=== PATIENT | female | born 1980 | race African-American/Black ===

== ENCOUNTER 2018-07-13 13:41 | Inpatient (IN) | payer OTHER ==
[~2018-07-13] VITALS: Ht 177.8 cm; Wt 86.3 kg
[2018-07-13 14:25] LABS: Basophils # (auto) 0 uL; Basophils % (auto) 0.5 % (0.0-2.0); Eosinophils # (auto) 0.1 uL; Lymphocytes # (auto) 1.2 uL; Monocytes # (auto) 0.3 uL; Nucleated Red Blood Cells % 0.1 %
[2018-07-13 14:27] LABS: Eosinophils % (auto) 2.6 % (0.0-7.0); Hematocrit 21.7 % (36.0-46.0); Lymphocytes % (auto) 22.1 % (10.0-50.0); Mean Corpuscular Hemoglobin 22.2 pg (28.0-32.0); Mean Corpuscular Volume 71.5 fL (80.0-100.0); Monocytes % (auto) 5.6 % (0.0-12.0); Neutrophils # (auto) 3.7 uL; Neutrophils % (auto) 69.2 % (37.0-80.0); Platelet Count (auto) 258 10^3/uL (140-450); Red Blood Cells 3.04 10^6/uL (4.0-5.20); White Blood Cell 5.4 10^3/uL (4.4-10.8)
[2018-07-13 14:39] LABS: Red Cell Distribution Width 23.5 % (11.8-14.3)
[2018-07-13 14:41] LABS: Hemoglobin 6.7 g/dL (12.2-16.2)
[2018-07-13 14:43] LABS: Alanine Aminotransferase 17 U/L (13-56); Albumin 3.6 g/dL (3.4-5.0); Anion Gap 8 (5-15); Blood Urea Nitrogen 5 mg/dL (7-18); Carbon Dioxide 22 mmol/L (21-32); Chloride 108 mmol/L (98-107); Glucose 91 mg/dL (74-106); Potassium 3.7 mmol/L (3.5-5.1); Sodium 138 mmol/L (136-145)
[2018-07-13 14:47] LABS: Alkaline Phosphatase 44 U/L (45-117); Aspartate Aminotransferase 12 U/L (15-37); BUN/Creatinine Ratio 8.3; Bilirubin, Total 0.3 mg/dL (0.2-1.0); GFR African American 145 mL/min; GFR Non-African American 120 mL/min; Total Protein 7.8 g/dL (6.4-8.2)
[2018-07-13] MEDS ORDERED: ACETAMINOPHEN 325 MG TAB PO PRN (16:00)
[2018-07-13] MEDS ORDERED: MORPHINE SULFATE 4 MG/ML SYR/VIAL IV PRN ×2 (16:00)
[2018-07-13] MEDS ORDERED: ONDANSETRON HCL 4 MG/2 ML VIAL IV PRN (16:00)
[2018-07-13] MEDS ORDERED: PANTOPRAZOLE 40 MG/10 ML VIAL IV ONE (16:00)
[2018-07-13] MEDS ORDERED: TEMAZEPAM 15 MG CAP PO PRN (16:00)
[2018-07-13] MEDS ORDERED: HYDROcodone-ACET 5/325MG TAB PO PRN (16:00)
[2018-07-13] MEDS ORDERED: DOCUSATE SOD 100 MG CAP PO PRN (16:00)
[2018-07-13] MEDS ORDERED: NITROGLYCERIN 0.4 MG SL TAB SL PRN (16:00)
[2018-07-13] MEDS: SODIUM CHLORIDE 0.9% 1,000 ML IV SCH (16:20)
[2018-07-13 17:29] LABS: INR 0.95 (0.9-1.15); Prothrombin Time 10.2 sec (9.27-12.13)
[2018-07-13 17:46] VITALS: BP 126/66
[2018-07-13 18:01] VITALS: BP 112/66
[2018-07-13 20:01] VITALS: BP 112/70
[2018-07-13 20:30] VITALS: BP 107/64
[2018-07-13] MEDS: FAMOTIDINE 20 MG TAB PO SCH (22:29)
[2018-07-14 01:02] VITALS: BP 110/67
[2018-07-14] MEDS ORDERED: PED1DRO5 PO (01:45)
[2018-07-14] MEDS ORDERED: MULTCAP45 PO (01:46)
[2018-07-14 05:30] VITALS: BP_SYST 109; BP_SYST 111; BP_DIAS 64
[2018-07-14 05:48] LABS: Basophils # (auto) 0 uL; Hemoglobin 8.4 g/dL (12.2-16.2); Monocytes # (auto) 0.3 uL; Neutrophils # (auto) 3.6 uL; Nucleated Red Blood Cells % 0.1 %; White Blood Cell 5.1 10^3/uL (4.4-10.8)
[2018-07-14 05:50] LABS: Basophils % (auto) 0.6 % (0.0-2.0); Eosinophils # (auto) 0.2 uL; Eosinophils % (auto) 3.5 % (0.0-7.0); Hematocrit 26.9 % (36.0-46.0); Lymphocytes % (auto) 20.2 % (10.0-50.0); Mean Corpuscular Hemoglobin 23.9 pg (28.0-32.0); Mean Corpuscular Hgb Conc. 31.3 g/dL (32.0-36.0); Mean Corpuscular Volume 76.2 fL (80.0-100.0); Monocytes % (auto) 5.6 % (0.0-12.0); Neutrophils % (auto) 70.1 % (37.0-80.0); Platelet Count (auto) 230 10^3/uL (140-450); Red Blood Cells 3.53 10^6/uL (4.0-5.20)
[2018-07-14 05:56] LABS: Red Cell Distribution Width 23.8 % (11.8-14.3)
[2018-07-14 06:10] LABS: Albumin 3.2 g/dL (3.4-5.0); BUN/Creatinine Ratio 10.9; Calcium 7.9 mg/dL (8.5-10.1)
[2018-07-14 06:19] LABS: Bilirubin, Total 0.3 mg/dL (0.2-1.0); Total Protein 6.9 g/dL (6.4-8.2)
[2018-07-14 08:30] VITALS: BP 114/68
[2018-07-14] MEDS: SODIUM CHLORIDE 0.9% 1,000 ML IV SCH ×2 (08:33→19:12)
[2018-07-14] MEDS ORDERED: PANTOPRAZOLE 40 MG/10 ML VIAL IV SCH ×2 (10:00→22:00)
[2018-07-14] MEDS: MULTIPLE VITAMIN TAB PO SCH (10:17)
[2018-07-14] MEDS: FAMOTIDINE 20 MG TAB PO SCH (10:18)
[2018-07-14 12:30] VITALS: BP 123/70
[2018-07-14 16:30] VITALS: BP 114/74
[2018-07-14 22:00] VITALS: BP 124/67
[2018-07-14 23:02] LABS: Urine Bacteria NONE SEEN /hpf (None Seen); Urine Blood Negative /uL (Negative); Urine Specific Gravity 1.016 (1.001-1.035); Urine WBC 2 /hpf (0 - 5)
[2018-07-15 05:20] VITALS: BP 96/71
[2018-07-15 06:03] LABS: Basophils # (auto) 0 uL; Hemoglobin 7.9 g/dL (12.2-16.2); Lymphocytes # (auto) 0.8 uL; Monocytes # (auto) 0.3 uL; Nucleated Red Blood Cells % 0.1 %
[2018-07-15 06:05] LABS: Basophils % (auto) 0.7 % (0.0-2.0); Eosinophils # (auto) 0.1 uL; Eosinophils % (auto) 2.6 % (0.0-7.0); Hematocrit 24.6 % (36.0-46.0); Lymphocytes % (auto) 15.5 % (10.0-50.0); Mean Corpuscular Hemoglobin 24.1 pg (28.0-32.0); Mean Corpuscular Volume 75.3 fL (80.0-100.0); Neutrophils # (auto) 3.8 uL; Neutrophils % (auto) 75.2 % (37.0-80.0); Platelet Count (auto) 204 10^3/uL (140-450); Red Blood Cells 3.27 10^6/uL (4.0-5.20)
[2018-07-15 06:06] LABS: Red Cell Distribution Width 24.1 % (11.8-14.3)
[2018-07-15 08:00] VITALS: BP 110/69
[2018-07-15] MEDS: MULTIPLE VITAMIN TAB PO SCH (10:00)
[2018-07-15] MEDS ORDERED: LIDOCAINE VISCOUS 2% 15ML UD ONE (11:42)
[2018-07-15] MEDS ORDERED: SODIUM CHLORIDE LOCK 10 ML ONE (11:42)
[2018-07-15 12:00] VITALS: BP 112/76
[2018-07-15] MEDS: fentaNYL CITRATE 100 MCG/2 ML VL ONE ×2 (12:50→12:53)
[2018-07-15] MEDS: MIDAZOLAM HCL 5 MG/ML-1ML VIAL ONE ×3 (12:50→13:00)
[2018-07-15] MEDS ORDERED: diphenhdrAMINE 50mg/ml (500mg/10ml VIAL) ONE (12:56)
[2018-07-15 16:42] VITALS: BP 103/64
[2018-07-15] MEDS ORDERED: PANTOPRAZOLE 40 MG TAB PO SCH (22:00)
== END 2018-07-15 17:00 | disposition home or self-care (01) | DRG 384 ==
LOC: ER 13:47 → TELE 15:53 → TELE-WESTW 20:03
PROVIDERS: ADMIT Internal Medicine; ATTEND Internal Medicine
PROC: 30233N1 Transfusion of Nonautologous Red Blood Cells into Peripheral Vein, Percutaneous Approach (ICD-10-PCS; 2018-07-13)
PROC: 0W3P8ZZ Control Bleeding in Gastrointestinal Tract, Via Natural or Artificial Opening Endoscopic (ICD-10-PCS; principal; 2018-07-15 12:47)
DX: K25.9 Gastric ulcer, unspecified as acute or chronic, without hemorrhage or perforation (principal); N92.0 Excessive and frequent menstruation with regular cycle; E83.51 Hypocalcemia; K21.9 Gastro-esophageal reflux disease without esophagitis; K29.50 Unspecified chronic gastritis without bleeding; D50.9 Iron deficiency anemia, unspecified; Z90.49 Acquired absence of other specified parts of digestive tract; Z88.8 Allergy status to other drugs, medicaments and biological substances; Z87.11 Personal history of peptic ulcer disease
CPT/HCPCS: 36415; 36430; 76830; 76856; 80053; 81001; 81025; 82270; 83540; 83690; 84484; 85025; 85610; 86850; 86900; 86901; 86920; 93005; 96374; C9113; G0378; J1200; J2250